=== PATIENT | male | born 1995 | race American Indian/Alaskan Native ===

== ENCOUNTER 2017-04-20 18:56 | Emergency (ER) | payer SELFPAY ==
[2017-04-20 19:16] VITALS: BP 125/91
== END 2017-04-20 21:30 | disposition left against medical advice (07) ==
LOC: ED 18:56
DX: J02.9 Acute pharyngitis, unspecified (principal); Z53.21 Procedure and treatment not carried out due to patient leaving prior to being seen by health care provider